=== PATIENT | female | born 2000 | race African-American/Black ===

== ENCOUNTER 2025-08-26 09:28 | Emergency (ER) | payer MEDICAID, OTHER ==
[~2025-08-26] VITALS: Ht 162.6 cm; Wt 80.7 kg
--- NOTE | 2025-08-26 10:15 | ED.PDOC ---
Back pain HPI HPI Comments 25-year-old female presents to the ER with a chief complaint of left shoulder blade pain. Patient reports on experiencing sharp pain to her left posterior shoulder license January of 2025,without a clear cause. The pain exacerbated when someone attempt to crack it. The patient did take a muscle relaxer which temporarily alleviated the pain. Two nights ago with the pain intensified after sneezing, causing the patient to go to urgent care yesterday and was prescribed with a muscle relaxers and Motrin. The patient notes on not seeing her new primary care physician since switching to a new healthcare provider. Denies any other symptoms at this time. Denies history of chronic steroid use or history of osteoporosis Denies history of cancer Denies fevers chills night sweats nausea vomiting unintentional weight loss Denies abdominal tearing pain Denies syncope Denies urinary changes or urinary incontinence Denies numbness tingling of the groin her inner thigh Denies previous back procedures or surgeries Chief Complaint: Upper Extremity Time Seen by MD: 10:00 Reviewed Notes: Nurses Notes, Medications, Allergies Allergies: Coded Allergies: NO KNOWN ALLERGIES (Unverified , 08/26/25) Information Source: Patient Mode of Arrival: Ambulatory Timing: Months Duration: Since onset Location of Back pain: (L) Upper back Severity: Moderate Prehospital treatment: None Quality: Aching Onset: Spontaneous History of: None Associated signs and symptoms: None Past Medical History PAST MEDICAL HISTORY: Denies Surgical History: Denies all surgeries LEGUILLON DEBEADER History: No Pertinent LEGUILLON DEBEADER History Family History Family History: Reviewed,noncontributory to illness, Unknown Social History Smoker: Non-Smoker Alcohol: Denies ETOH Use Drugs: Denies Drug Use Lives In: Home Constitutional: denies: chills, diaphoresis, fatigue, fever, malaise, sweats, weakness, others EENTM: denies: blurred vision, double vision, ear bleeding, ear discharge, ear drainage, ear pain, ear ringing, eye pain, eye redness, hearing loss, mouth pain, mouth swelling, nasal discharge, nose bleeding, nose congestion, nose pain, photophobia, tearing, throat pain, throat swelling, voice changes, others Respiratory: denies: cough, hemoptysis, orthopnea, SOB at rest, shortness of breath, SOB with excertion, stridor, wheezing, others Cardiovascular: denies: chest pain, dizzy spells, diaphoresis, Dyspnea on exertion, edema, irregular heart beat, left arm pain, lightheadedness, palpitations, PND, syncope, others Gastrointestinal: denies: abdomen distended, abdominal pain, blood streaked bowels, constipated, diarrhea, dysphagia, difficulty swallowing, hematemesis, melena, nausea, poor appetite, poor fluid intake, rectal bleeding, rectal pain, vomiting, others Genitourinary: denies: abnormal vagina bleeding, burning, dyspareunia, dysuria, flank pain, frequency, hematuria, incontinence, pain, , vagina discharge, urgency, others Neurological: denies: dizziness, fainting, headache, left sided numbness, left sided weakness, numbness, paresthesia, pre-existing deficit, right sided numbness, right sided weakness, seizure, speech problems, tingling, tremors, weakness, others Musculoskeletal: reports: back pain; denies: gout, joint pain, joint swelling, muscle pain, muscle stiffness, neck pain, others Integumetry: denies: bruises, change in color, change in hair/nails, dryness, laceration, lesions, lumps, rash, wounds, others Allergic/Immunocompromised: denies: Difficulty Healing, Frequent Infections, Hives, Itching, others Hematologic/Lymphatic: denies: anemia, blood clots, easy bleeding, easy bruising, swollen glands, others Endocrine: denies: excessive hunger, excessive sweating, excessive thirst, excessive urination, flushing, intolerance to cold, intolerance to heat, unexplained weight gain, unexplained weight loss, others Psychiatric: denies: anxiety, bipolar disorder, depression, hopeless, panic disorder, schizophrenia, sleepless, suicidal, others All Other Systems: Reviewed and Negative Physical Exam Exam Comments Localized TTP to left scapula, pain with lateral movement, neurovascular sensation intact General Appearance: No Apparent Distress, Normal HEENT: Normal ENT Inspection, Pharynx Normal, TMs Normal Neck: Full Range of Motion, Non-Tender, Normal, Normal Inspection Respiratory: Chest Non-Tender, Lungs Clear, No Accessory Muscle Use, No Respiratory Distress, Normal Breath Sounds Cardiovascular: No Edema, No JVD, No Murmur, No Gallop, Normal Peripheral Pulses, Regular Rate/Rhythm Breast Exam: Deferred Gastrointestinal: No Organomegaly, Non Tender, No Pulsatile Mass, Normal Bowel Sounds, Soft Genitalia: Deferred Pelvic: Deferred Rectal: Deferred Extremities: No calf tenderness, Normal capillary refill, Normal inspection, Normal range of motion, Non-tender, No pedal edema Musculoskeletal : Apperance: Normal Neurologic: Alert, labor expediter II-XII nml as Tested, No Motor Deficits, Normal Affect, Normal Mood, No Sensory Deficits Cerebellar Function: Normal Reflexes: Normal Skin: Dry, Normal Color, Warm Lymphatic: No Adenopathy Was a procedure done? Was a procedure done?: No Back Pain Differential Dx Differential Diagnosis: Musculoskeletal Pain X-Ray, Labs, Meds, VS Vital Signs Date Time Temp Pulse Resp B/P (MAP) Pulse Ox O2 Delivery O2 Flow Rate FiO2 08/26/25 11:49 98.1 64 17 132/84 (100) 98 98.1 08/26/25 11:49 64 17 98 Room Air 08/26/25 09:32 97.5 68 16 130/87 97 97.5 Current Medications Medications (Trade) Dose Ordered Sig/Ngoc Route Start Time Stop Time Status Last Admin Ketorolac Tromethamine (Toradol Injection) 30 mg ONCE ONCE IM 08/26/25 11:00 08/26/25 11:05 DC 08/26/25 11:09 X-Ray, Labs, Meds, VS Comment 25-year-old female presents to the ER with a chief complaint of left shoulder blade pain. Patient arrives alert and oriented, ABC's intact, afebrile, vital signs stable, saturating well in room air Diagnostic imaging ordered by me and results interpreted by radiology : X-ray of the back ED workup: Defer further imaging and lab work for outpatient follow up at this time Disposition: Discharge. Strict return precautions discussed with the patient with full understanding. Supportive care advised (rest, ice, heat, NSAIDs, stretching exercises) Massage muscles with cold pack or ice for 20 minutes 4 times per day. Usually most useful if there is swelling during the first 48 hours Heating pad on the most painful area for 20 minutes to relieve muscle spasm Sleep and the most comfortable sleeping position (usually on the side with knees bent) Light stretching, no strenuous activity, avoid frequent bending, avoid carrying heavy objects Discussed possible benefits of yoga and acupuncture On reevaluation, patient had symptomatic improvement. Patient is stable for discharge at this time. External notes reviewed. Test results and diagnostic imaging interpreted. All diagnostic findings, discharge care, education and instructions provided Follow-up with PCP in 2 to 3 days Patient verbalized understanding and agreed to treatment plan Vital signs stable, afebrile, no acute distress noted Patient ambulatory with strong steady gait Advised to return precautions for any new or worsening symptoms, return to ER immediately for re-evaluation Patient is aware that the purpose of this visit was for an acute medical emergency requiring emergent stabilization. Chronic conditions, including malignancies have not been ruled out. Patient is instructed to follow up with PCP as directed and discharge instructions for continued care and workup. If un able to arrange follow-up, patient is to return to the emergency department for reassessment. Patient (parent or legal guardian if applicable) was given verbal and written discharge instructions and acknowledges understanding. Additional MDM Review of External, Non-ED records: External records reviewed. Discussion with independent historian (EMS, family) history obtained from the patient/parents (if applicable) at bedside Chronic conditions affecting care: None Social determinants of health affecting care: None Consideration of admission (observation or admission): I considered escalation of care to admission for this patient, however given the reassuring workup, the patient is safe for outpatient management. Discussion with the Radiology: No Tests considered but not performed: Prescription medication considered but not given: 12 lead EKG interpretation: Time of 1ST Reevaluation: 10:30 Reevaluation 1ST: Unchanged Patient Education/Counseling: Diagnosis, Treatment, Prognosis Family Education/Counseling: No Family Present SEPSIS Sepsis Screen Date sepsis recognized/suspect: Aug 26, 2025 Time Sepsis recognized/suspect: 933 Recent Procedure: No On Antibiotic Therapy: No Respiratory Rate >20: No Heart Rate >90: No Temp<36 C (96.8 F) or >38.3 C: No SBP <90 or MAP <65 mmHG: No New Acute Mental Status Change: No Is the patient on CPAP, BIPAP,: No Physician Orders Chest Xray 1 View (08/26/25 10:05) Vital Signs Date Time Temp Pulse Resp B/P (MAP) Pulse Ox O2 Delivery O2 Flow Rate FiO2 08/26/25 11:49 98.1 64 17 132/84 (100) 98 98.1 08/26/25 11:49 64 17 98 Room Air 08/26/25 09:32 97.5 68 16 130/87 97 97.5 Medications Medications Dose Ordered Sig/Ngoc Route Start Time Stop Time Status Last Admin Dose Admin Ketorolac Tromethamine 30 mg ONCE ONCE IM 08/26/25 11:00 08/26/25 11:05 DC 08/26/25 11:09 Departure 1 Departure Time of Disposition: 11:26 Impression: Primary Impression: Musculoskeletal pain Disposition: 01 HOME / SELF CARE / HOMELESS Condition: Stable Discharged With: Self Critical Care Note Critical Care Time?: No Stability Stability form required: No Heart Score Heart Score: Heart Score Response (Comments) Value History N/A 0 EKG N/A 0 Age N/A 0 Risk Factors N/A 0 Troponin N/A 0 Total 0 I personally scribed for LEIGH VEGA NP ([email or web address]) on 08/26/25 at 10:15. Elec tronically submitted by Adiel Sweeney ([email or web address]). LEIGH VEGA NP Aug 26, 2025 10:15
--- NOTE | 2025-08-26 10:43 | DVH ---
CLINICAL INFORMATION: Rule out pneumonia. TECHNIQUE: Single AP portable chest radiograph was obtained. COMPARISON: None FINDINGS: Lungs: Clear. Cardiac: Heart size is within normal limits. Pulmonary vasculature: Unremarkable. Mediastinum/roney: Unremarkable. Bones: No acute osseous abnormality identified. Other: No other significant findings. IMPRESSION: No evidence of acute disease in the chest.
[2025-08-26] MEDS: KETOROLAC TROMETH 30 MG/ML 1ML VIAL IM ONE (11:09)
[2025-08-26 11:49] VITALS: BP 132/84; PULSE 64; RESP 17; TEMP 98.1; O2SAT 98
== END 2025-08-26 11:51 | disposition home or self-care (01) ==
LOC: ER 09:33
DX: M79.18 Myalgia, other site (principal); Z79.899 Other long term (current) drug therapy
CPT/HCPCS: 71045; 96372; 99283; J1885

== ENCOUNTER 2025-08-31 14:51 | Emergency (ER) | payer MEDICAID ==
[~2025-08-31] VITALS: Ht 162.6 cm; Wt 83.0 kg
[2025-08-31 14:56] VITALS: BP 133/88; PULSE 63; RESP 15; TEMP 97.2; O2SAT 100
[2025-08-31] MEDS ORDERED: HYDROcodone-ACET 10/325MG TAB PO ONE (16:30)
--- NOTE | 2025-08-31 16:34 | ED.PDOC ---
Back pain HPI HPI Comments 25 y.o female presents to the ED for a chief complaint of left shoulder/upper back pain that started 1 week ago s/p sneezing. Patient describes pain as sharp, worsens with movement and is constant. Patient was seen at this ER about 2-3 days ago, was given pain medication and discharge home with no medication. She mentions pain medication provided no relief and states pain has worsened. She denies any recent falls, numbness or tingling sensation. Chief Complaint: Back Pain Time Seen by MD: 16:10 Reviewed Notes: Nurses Notes, Medications, Allergies Allergies: Coded Allergies: NO KNOWN ALLERGIES (Unverified , 08/26/25) Information Source: Patient Mode of Arrival: Ambulatory Timing: Weeks (1) Duration: Since onset Location of Back pain: (L) Upper back Severity: Moderate Quality: Sharp Onset: Spontaneous History of: Other Past Medical History PAST MEDICAL HISTORY: Denies Surgical History: Denies all surgeries COIN BOX COLLECTOR History: No Pertinent COIN BOX COLLECTOR History Family History Family History: Reviewed,noncontributory to illness, Unknown Social History Smoker: Non-Smoker Alcohol: Denies ETOH Use Drugs: Denies Drug Use Lives In: Home Constitutional: denies: chills, diaphoresis, fatigue, fever, malaise, sweats, weakness, others EENTM: denies: blurred vision, double vision, ear bleeding, ear discharge, ear drainage, ear pain, ear ringing, eye pain, eye redness, hearing loss, mouth pain, mouth swelling, nasal discharge, nose bleeding, nose congestion, nose pain, photophobia, tearing, throat pain, throat swelling, voice changes, others Respiratory: denies: cough, hemoptysis, orthopnea, SOB at rest, shortness of breath, SOB with excertion, stridor, wheezing, others Cardiovascular: denies: chest pain, dizzy spells, diaphoresis, Dyspnea on exertion, edema, irregular heart beat, left arm pain, lightheadedness, palpitations, PND, syncope, others Gastrointestinal: denies: abdomen distended, abdominal pain, blood streaked bowels, constipated, diarrhea, dysphagia, difficulty swallowing, hematemesis, melena, nausea, poor appetite, poor fluid intake, rectal bleeding, rectal pain, vomiting, others Genitourinary: denies: abnormal vagina bleeding, burning, dyspareunia, dysuria, flank pain, frequency, hematuria, incontinence, pain, , vagina discharge, urgency, others Neurological: denies: dizziness, fainting, headache, left sided numbness, left sided weakness, numbness, paresthesia, pre-existing deficit, right sided numbness, right sided weakness, seizure, speech problems, tingling, tremors, weakness, others Musculoskeletal: reports: back pain, others (left shoulder ); denies: gout, joint pain, joint swelling, muscle pain, muscle stiffness, neck pain Integumetry: denies: bruises, change in color, change in hair/nails, dryness, laceration, lesions, lumps, rash, wounds, others Allergic/Immunocompromised: denies: Difficulty Healing, Frequent Infections, Hives, Itching, others Hematologic/Lymphatic: denies: anemia, blood clots, easy bleeding, easy bruising, swollen glands, others Endocrine: denies: excessive hunger, excessive sweating, excessive thirst, excessive urination, flushing, intolerance to cold, intolerance to heat, unexplained weight gain, unexplained weight loss, others Psychiatric: denies: anxiety, bipolar disorder, depression, hopeless, panic disorder, schizophrenia, sleepless, suicidal, others All Other Systems: Reviewed and Negative Physical Exam General Appearance: Moderate Distress HEENT: Normal ENT Inspection, Pharynx Normal, TMs Normal Neck: Full Range of Motion, Non-Tender, Normal, Normal Inspection Respiratory: Chest Non-Tender, Lungs Clear, No Accessory Muscle Use, No Respiratory Distress, Normal Breath Sounds Cardiovascular: No Edema, No JVD, No Murmur, No Gallop, Normal Peripheral Pulses, Regular Rate/Rhythm Breast Exam: Deferred Gastrointestinal: No Organomegaly, Non Tender, No Pulsatile Mass, Normal Bowel Sounds, Soft Genitalia: Deferred Pelvic: Deferred Rectal: Deferred Extremities: No calf tenderness, Normal capillary refill, Normal inspection, Normal range of motion, Non-tender, No pedal edema Musculoskeletal : Apperance: Normal Neurologic: Alert, fisher trawl net II-XII nml as Tested, No Motor Deficits, Normal Affect, Normal Mood, No Sensory Deficits Cerebellar Function: Normal Reflexes: Normal Skin: Dry, Normal Color, Warm Peripheral Pulses: 3+ Radial (R), 3+ Radial (L) Lymphatic: No Adenopathy Was a procedure done? Was a procedure done?: No Back Pain Differential Dx Differential Diagnosis: DJD, Musculoskeletal Pain, Strain X-Ray, Labs, Meds, VS Vital Signs Date Time Temp Pulse Resp B/P (MAP) Pulse Ox O2 Delivery O2 Flow Rate FiO2 08/31/25 14:56 97.2 63 15 133/88 100 97.2 Patient alert. Came in because of left shoulder pain. Was seen here for the same condition few days ago here. Vitals stable. Answering all questions. Ambulating. Able to move her extremities without any difficulty. Was given pain medication. Chest x-ray was done during her last wishes wishes few days ago does show normal contour of the shoulder. Explained to the patient. Was told to follow up with her primary care physician. Was told to come back if there is any problem. Time of 1ST Reevaluation: 16:31 Reevaluation 1ST: Improved Patient Education/Counseling: Diagnosis, Treatment, Prognosis Family Education/Counseling: No Family Present SEPSIS Sepsis Screen Date sepsis recognized/suspect: Aug 31, 2025 Time Sepsis recognized/suspect: 1456 Recent Procedure: No On Antibiotic Therapy: No Respiratory Rate >20: No Heart Rate >90: No Temp<36 C (96.8 F) or >38.3 C: No SBP <90 or MAP <65 mmHG: No New Acute Mental Status Change: No Is the patient on CPAP, BIPAP,: No Vital Signs Date Time Temp Pulse Resp B/P (MAP) Pulse Ox O2 Delivery O2 Flow Rate FiO2 08/31/25 14:56 97.2 63 15 133/88 100 97.2 Departure 1 Departure Time of Disposition: 17:04 Impression: Primary Impression: Musculoskeletal pain Disposition: 01 HOME / SELF CARE / HOMELESS Condition: Good Discharged With: Self Critical Care Note Critical Care Time?: No Stability Stability form required: No I personally scribed for CARLA DUKE MD ([email or web address]) on 08/31/25 at 16:34. Electronically submitted by Nayana Landaverde ([facility]). CARLA DUKE MD Aug 31, 2025 16:34
== END 2025-08-31 17:31 | disposition home or self-care (01) ==
LOC: ER 14:51
DX: M25.512 Pain in left shoulder (principal); M54.89 Other dorsalgia